=== PATIENT | male | born 1960 | race Caucasian/White ===

== ENCOUNTER → 2018-05-17 | Outpatient (CLI) | payer BC ==
--- NOTE | 2018-05-17 16:08 | XR ---
EXAMINATION TYPE: XR elbow complete bilateral DATE OF EXAM: 05/17/2018 COMPARISON: None HISTORY: Bilateral elbow pain TECHNIQUE: 3 views bilateral elbows FINDINGS: Bilateral elbows are examined in 3 views. The radius aligns normally humerus. Ulnar humeral joint space appears preserved. No anterior fat pad posterior fat pad elevation is evident. No acute fractures are evident. IMPRESSION: 1. Normal bilateral elbows.
== END | disposition home or self-care (01) ==
LOC: RADXRMAIN 10:13
PROVIDERS: ATTEND Family Medicine
DX: M25.521 Pain in right elbow (principal); M25.522 Pain in left elbow